=== PATIENT | male | born 1990 | race Caucasian/White ===

== ENCOUNTER 2017-02-06 03:41 | Emergency (ER) | payer OTHER ==
[~2017-02-06] VITALS: Ht 188 cm; Wt 90.7 kg
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
[2017-02-06] MEDS ORDERED: CYCLOBENZAPRINE10 M1 PO (05:13)
[2017-02-06 05:22] VITALS: BP 135/73
== END 2017-02-06 05:23 ==
LOC: ERH 03:41
DX: S63.502A Unspecified sprain of left wrist, initial encounter (principal); V49.40XA Driver injured in collision with unspecified motor vehicles in traffic accident, initial encounter; Y92.9 Unspecified place or not applicable
CPT/HCPCS: 73110-LT; 90471; 90714